=== PATIENT | female | born 1955 | race Caucasian/White ===

== ENCOUNTER → 2017-03-04 | Outpatient (CLI) | payer BC ==
[~2017-03-04] MED LIST: ALEVE220 MG PO; AMARYL1 MG PO; ASPIRIN EC325 MG PO; COZAAR100 MG PO; DETROL LA4 MG PO; FLEXERIL10 MG PO; LASIX40 MG PO; LIPITOR10 MG PO; LUMIGAN 0.01%2.5 ML EYEBOTH; MYRBETRIQ50 MG PO; NORCO 325-5 MG1 TAB PO; ONE DAILY COMP1 EACH PO; STOOL SOFTENER100 M1 PO; VITAMIN B COMP1 EACH PO; VITAMIN B-1100 MG PO; XALATAN 0.005%2.5 ML EYEBOTH
== END | disposition short-term general hospital (02) ==
LOC: CLORTH 13:58
DX: Z47.1 Aftercare following joint replacement surgery (principal); Z96.612 Presence of left artificial shoulder joint